=== PATIENT | female | born 1985 | race African-American/Black ===

== ENCOUNTER 2018-01-13 12:07 | Emergency (ER) | payer OTHER ==
[2018-01-13 12:14] VITALS: TEMP 97.7; BMI 21.9
--- NOTE | 2018-01-13 13:03 | PDOC ---
Attending Attestation - HPI HPI: 01/13/18 14:57 "The patient is a 32-year-old female, , 11 weeks , with past medical history significant for Sickle Cell (dx at a young age) presents to the emergency department with abdominal pain for the 3 days. The patient presents with an acute onset of intermittent sharp pain to the RLQ and adnexal region thats felt near the end of urination. The patient reports she has a history of anemia, was referred to follow up, denies following up. The patient states she was diagnosed with Sickle Cell at a young age, without follow up. Denies nausea , vomiting, diarrhea, constipation, fever, chills, vaginal bleeding/discharge, dysuria, hematuria, frequency or urgency to urinate. Allergies: NKA Social history: No past or present use of tobacco, alcohol, prescription drug abuse or recreational drug use. Surgical history: None reported PCP: Dr. Gill Singh PROCESS CONTROL TECHNICIAN: 2 Park schmid. " - Medical Decision Making 01/13/18 14:57 Documentation prepared by Nayely Dennis, acting as medical terminologist for Garo Verdin MD. <Nayely Dennis - Last Filed: 01/13/18 14:57> - Resident Resident Name: To Bethea - ED Attending Attestation I have performed the following: I have examined & evaluated the patient, The case was reviewed & discussed with the resident, I agree w/resident's findings & plan, Exceptions are as noted - Physicial Exam PE: 01/13/18 14:26 GENERAL: The patient is awake, alert, and fully oriented, Nontoxic - in no acute distress. HEAD: Normocephalic, atraumatic. ABDOMEN: Soft, nontender, No guarding, no rebound. No CVA tenderness EXTREMITIES: Normal range of motion, no edema. NEUROLOGICAL: No facial assymetry, Normal speech, PSYCH: Normal mood, normal affect. SKIN: Warm, Dry, normal turgor, - Medical Decision Making 01/13/18 14:27 ddx for pain at end of urination w/o systemic clmiplains consider UTI if preg diana obtain us to confirm IUP pt currently asymptmoatic labs unremarkble UA negative noted for mild anemia - known Sickle cell - has appt with M 01/13/18 15:41 The patient's ultrasound reveals a in IUP with heart rate 152. As she is asymptomatic I will discharge patient with HEALTHCARE ECONOMICS MANAGER follow-up. return precautions were discussed 01/13/18 16:14 A portion of this note was documented by scribe services under my direction. I have reviewed the details of the note, within reason, and agree with the documentation with the following case summary and management plan written by me <Garo Verdin - Last Filed: 01/13/18 16:14>
[2018-01-13 13:26] LABS: BASO % 0.5 % (0-2.0); EOS % 0.7 % (0-4.5); HEMOGLOBIN 9.6 GM/dL (10.7-15.3); LYMPH % 21.3 % (8-40); MCH 30.5 pg (25.7-33.7); MCHC 35.5 g/dl (32.0-36.0); MEAN CELL VOLUME 85.9 fl (80-96); MEAN PLT VOLUME 11.3 fl (7.5-11.1); MONO % 8.1 % (3.8-10.2); NEUT % 69.4 % (42.8-82.8); PLATELET COUNT 141 K/MM3 (134-434); RBC 3.14 M/mm3 (3.60-5.2); RDW 14.8 % (11.6-15.6); WHITE BLOOD COUNT 5.8 K/mm3 (4.0-10.0)
--- NOTE | 2018-01-13 13:29 | PDOC ---
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 Patient states the pain is sharp, radiates across the abdomen and is noticed towards the end of voiding urine. Pts last appointment with OB 3 weeks ago (Dr. Ba at [facility]) and due to anemia has been referred to Dr. Chavez (Neonatology). Pt denies F/C/N/V , increased frequency of urination, changes in bowel habits, Cp or SOB. Past History - Past Medical History Allergies/Adverse Reactions: Allergies Allergy/AdvReac Type Severity Reaction Status Date / Time No Known Allergies Allergy Verified 01/13/18 12:11 Home Medications: Ambulatory Orders Folic Acid - 1 mg PO DAILY 01/13/18 Vit,Lukasz 74/Iron/Folic [ Low Iron Tablet] 1 each PO DAILY - Suicide/Smoking/Psychosocial Hx Smoking History: Never smoked Review of Systems - Review of Systems Constitutional: No: Chills, Fever Respiratory: No: Shortness of Breath Cardiac (ROS): No: Chest Pain ABD/GI: No: Nausea, Vomiting : Yes: Dysuria (towards the end of urination) Musculoskeletal: No: Back Pain Neurological: No: Headache *Physical Exam - Vital Signs Last Vital Signs Temp Pulse Resp BP Pulse Ox 97.7 F 81 18 136/70 100 01/13/18 12:11 01/13/18 12:11 01/13/18 12:11 01/13/18 12:11 01/13/18 12:11 - Physical Exam General Appearance: Yes: Nourished, Appropriately Dressed. No: Apparent Distress HEENT: positive: EOMI Respiratory/Chest: positive: Lungs Clear, Normal Breath Sounds. negative: Crackles, Wheezing Cardiovascular: positive: Regular Rhythm, Regular Rate, S1, S2. negative: Edema , JVD, Murmur Vascular Pulses: Dorsalis-Pedis (R): 4+, Doralis-Pedis (L): 4+ Gastrointestinal/Abdominal: positive: Normal Bowel Sounds, Tenderness (mild tenderness RLQ). negative: Pulsatile Mass, Distended, Guarding, Rebound Extremity: positive: Normal Capillary Refill Integumentary: positive: Normal Color, Dry, Warm Neurologic: positive: Fully Oriented, Alert, Normal Mood/Affect, Normal Response ED Treatment Course - LABORATORY CBC & Chemistry Diagram: 01/13/18 13:00 01/13/18 13:00 Medical Decision Making - Medical Decision Making 01/13/18 15:31 32 yo female no significant pmh 11 weeks with ED confirmed IUP [place] [id number] presents for RLQ pain after voiding urine. Pt appears well AOX3 and states she currently does not have pain. DDX: UTI, Urinary Stone, Ectopic/ruptured ectopic, ovarian cyst/ruptured cyst, appendicitis (unlikely, no WBC, Fever and no rebound), gall stones (unlikely due to location) 01/13/18 16:15 Urine negative for blood or infection Ultrasound shows IUP and a 2 by 1.5 cm right ovarian cyst. Unlikely to be causing pain but follow up with OB appointment set in one week patient re-assessed multiple times and states pain has improved without medical intervention, no longer tender on exam 01/13/18 16:19 *DC/Admit/Observation/Transfer Diagnosis at time of Disposition: Abdominal pain Qualifiers: Abdominal location: right lower quadrant Qualified Code(s): R10.31 - Right lower quadrant pain - Discharge Dispostion Disposition: HOME Condition at time of disposition: Stable Decision to Admit order: No - Referrals Referrals: Pema Singh MD [Primary Care Provider] - Yolanda Ba [Other] - Patient Instructions Additional Instructions: Please follow up and keep your appointment with Dr. Ba next Tuesday but be sure to give them a call to discuss your visit today. Only take Tylenol over the counter every 4-6 hours for pain relief. Please return to the Emergency Room for new or worsening symptoms including but not limited to: high fevers, nausea, vomiting, severe abdominal pain. Thank you - Post Discharge Activity
[2018-01-13 13:31] LABS: URINE APPEARANCE CLEAR; URINE BILIRUBIN NEGATIVE (<2.0 mg/dL); URINE COLOR LTYELLOW; URINE GLUCOSE (UA) NEGATIVE (NEGATIVE); URINE KETONE NEGATIVE (NEGATIVE); URINE LEUK ESTERASE NEGATIVE (NEGATIVE); URINE NITRITE NEGATIVE (NEGATIVE); URINE PROTEIN NEGATIVE (NEGATIVE); URINE UROBILINOGEN NEGATIVE mg/dL (0.2-1.0)
[2018-01-13 14:12] LABS: ALBUMIN 3.9 g/dl (3.4-5.0); ALK PHOS 64 U/L (45-117); ANION GAP 9 MMOL/L (8-16); BILIRUBIN,TOTAL 0.6 mg/dL (0.2-1); BLOOD UREA NITROGEN 6 mg/dL (7-18); CALCIUM 8.5 mg/dL (8.5-10.1); CHLORIDE 104 mmol/L (98-107); CO2 23 mmol/L (21-32); CREATININE 0.4 mg/dL (0.55-1.3); GLUCOSE,RANDOM 90 mg/dL (74-106); LIPASE 204 U/L (73-393); POTASSIUM 3.6 mmol/L (3.5-5.1); SGOT/AST 20 U/L (15-37); SGPT/ALT 23 U/L (13-61); SODIUM 136 mmol/L (136-145); TOT PROT 7.8 g/dl (6.4-8.2)
[2018-01-13 16:37] VITALS: BP 118/68; PULSE 74
== END 2018-01-13 16:36 | disposition home or self-care (01) ==
LOC: JER 12:07
DX: O26.891 Other specified pregnancy related conditions, first trimester (principal); Z3A.11 11 weeks gestation of pregnancy; R10.31 Right lower quadrant pain
CPT/HCPCS: 36415; 76801-TC; 80053; 81003; 83690; 84702; 85025; 87086; 99283-25

== ENCOUNTER 2018-07-21 18:06 | Inpatient (IN) | payer OTHER ==
[2018-07-21] MEDS ORDERED: CITRIC ACID/SODIUM CITRATE 30 ML UNIT-DOSE CUP PO ONE (22:22)
[2018-07-21] MEDS ORDERED: ELECTROLYTE-148 SOLN 1,000 ML IV SCH (22:30)
--- NOTE | 2018-07-21 22:31 | HP ---
Past Medical History - Primary Care Physician PCP:: Neo Belle - Admission Chief Complaint: 38 weeks, oligohydramnions , non reassuring FHR History of Present Illness: 33 yo f 38 weeks with hx of oligo , referred by M[facility] at [facility] for delivery, cx clp vx -3 mi, multiple deceleration noted on heart tracing, advised c/s ,risks discussed History Source: Patient Limitations to Obtaining History: No Limitations - Past Medical History ...: 1 ...Para: 0 ...Term: 0 ...: 0 ...Spon : 0 ...Induced : 0 ...LMP: 10/26/17 ... Weeks Gestation by Dates: 38.2 ...EDC by Dates: 11/02/18 ...EDC by Sono: 11/02/18 Heme/Onc: Yes: Anemia - Past Surgical History Hx Myomectomy: No Hx Transabdominal Cerclage: No - Smoking History Smoking history: Never smoked - Alcohol/Substance Use Hx Alcohol Use: No History of Substance Use: reports: None - Social History History of Recent Travel: No Home Medications - Allergies Allergies/Adverse Reactions: Allergies Allergy/AdvReac Type Severity Reaction Status Date / Time No Known Allergies Allergy Verified 07/21/18 21:50 - Home Medications Home Medications: Ambulatory Orders Folic Acid - 1 mg PO DAILY 01/13/18 Vit,Lukasz 74/Iron/Folic [ Low Iron Tablet] 1 each PO DAILY Review of Systems - Review of Systems Constitutional: reports: No Symptoms Eyes: reports: No Symptoms HENT: reports: No Symptoms Neck: reports: No Symptoms Cardiovascular: reports: No Symptoms Respiratory: reports: No Symptoms Gastrointestinal: reports: No Symptoms Genitourinary: reports: No Symptoms Breasts: reports: No Symptoms Reported Musculoskeletal: reports: No Symptoms Integumentary: reports: No Symptoms Neurological: reports: No Symptoms Endocrine: reports: No Symptoms Hematology/Lymphatic: reports: No Symptoms Psychiatric: reports: No Symptoms Physical Exam - Maternity Vital Signs: Vital Signs Temperature 98.7 F 07/21/18 18:06 Pulse Rate 68 07/21/18 18:06 Respiratory Rate 28 H 07/21/18 18:06 Blood Pressure 122/69 07/21/18 18:06 O2 Sat by Pulse Oximetry (%) Constitutional: Yes: Well Nourished, No Distress, Calm Eyes: Yes: WNL, Conjunctiva Clear, EOM Intact HENT: Yes: WNL, Atraumatic, Normocephalic Neck: Yes: WNL, Supple, Trachea Midline Cardiovascular: Yes: WNL, Regular Rate and Rhythm Breast(s): Yes: WNL - Abdominal Exam/OB Number of Fetuses: Single Presentation: Vertex Contractions: Yes Regularity: Irregular Intensity: Unaware Monitor Mode: External Heart Rate Location: [facility] Category: II Accelerations: Non-Uniform Decelerations: Late - Vaginal Exam/OB Vaginal Bleediing: No Speculum Exam: No Dilatation (cm): 0 Effacement (%): 0 Amniotic Membrane Status: Intact Presentation: Vertex/Position Station: -3 - Physical Exam Edema: Yes Edema: LLE: Trace, RLE: Trace Integumentary: Yes: WNL Deep Tendon Reflex Grade: Normal +2 Psychiatric: Yes: WNL Hemorrhage Risk Assessment - Risk Factors Medium Risk Factors: Yes: None High Risk Factors: Yes: None Risk Score: 1 Risk Level: Medium Risk Problem List - Problems (1) with 38 completed weeks gestation Code(s): Z3A.38 - 38 WEEKS GESTATION OF (2) Oligohydramnios Code(s): O41.00X0 - OLIGOHYDRAMNIOS, UNSP TRIMESTER, NOT APPLICABLE OR UNSP Qualifiers: Fetus number: single or unspecified fetus Trimester: third trimester Qualified Code(s): O41.03X0 - Oligohydramnios, third trimester, not applicable or unspecified (3) Non-reassuring electronic monitoring tracing Code(s): O76 - ABNLT IN HEART RATE AND RHYTHM COMP LABOR AND DELIVERY Assessment/Plan c/section, risks discussed
[2018-07-21 22:37] LABS: BASO % 0.6 % (0-2.0); EOS % 0.9 % (0-4.5); HEMOGLOBIN 9.3 GM/dL (10.7-15.3); LYMPH % 18.5 % (8-40); MCH 32.2 pg (25.7-33.7); MCHC 34.4 g/dl (32.0-36.0); MEAN CELL VOLUME 93.7 fl (80-96); MEAN PLT VOLUME 11.3 fl (7.5-11.1); MONO % 8.8 % (3.8-10.2); NEUT % 71.2 % (42.8-82.8); PLATELET COUNT 118 K/MM3 (134-434); RBC 2.89 M/mm3 (3.60-5.2); RDW 14.3 % (11.6-15.6); WHITE BLOOD COUNT 7.1 K/mm3 (4.0-10.0)
[2018-07-21 22:59] LABS: ANION GAP 6 MMOL/L (8-16); BLOOD UREA NITROGEN 8 mg/dL (7-18); CALCIUM 8.5 mg/dL (8.5-10.1); CHLORIDE 109 mmol/L (98-107); CO2 23 mmol/L (21-32); CREATININE 0.5 mg/dL (0.55-1.3); GLUCOSE,RANDOM 82 mg/dL (74-106); POTASSIUM 3.9 mmol/L (3.5-5.1); SODIUM 138 mmol/L (136-145)
[2018-07-21] MEDS ORDERED: morphine SULFATE/Preservative Free 0.5 MG/ML (1cc Syringe) ONE (23:05)
[2018-07-21 23:07] LABS: INR 0.96 (0.83-1.09); PROTHROMBIN TIME (PATIENT) 11.3 SEC (9.7-13.0)
[2018-07-21 23:09] LABS: ACTIVATED PTT 29.4 SECONDS (25.2-36.5)
[2018-07-21] MEDS ORDERED: ONDANSETRON 4 MG/2 ML VIAL IVPUSH PRN (23:19)
[2018-07-21] MEDS ORDERED: OXYTOCIN 20 UNITS in 0.9% NS 40 UNIT/2,000 ML INFUS.BAG IV ONE (23:22)
[2018-07-22] MEDS ORDERED: oxyCODONE HCL 5 MG TABLET PO PRN ×2 (00:26)
[2018-07-22] MEDS ORDERED: WITCH HAZEL 50% (TUCKS) 40 PAD/JAR PAD TP PRN (00:26)
[2018-07-22] MEDS ORDERED: BENZOCAINE 28 GM HEMORRHOIDAL OINTMENT PR PRN (00:26)
[2018-07-22] MEDS ORDERED: diphenhydrAMINE HCL 25 MG CAPSULE (FP) PO PRN (00:26)
[2018-07-22] MEDS ORDERED: IBUPROFEN 600 MG TABLET (FP) PO PRN (00:26)
[2018-07-22] MEDS ORDERED: BENZOCAINE 20% 57 GM BOTTLE TP PRN (00:26)
[2018-07-22] MEDS ORDERED: IBUPROFEN 800 MG/8 ML IJ IVPB PRN (00:26)
[2018-07-22] MEDS ORDERED: METHYLERGONOVINE MALEATE 0.2 MG/1 ML AMP IM PRN (00:26)
[2018-07-22] MEDS ORDERED: DEXTROSE 5%-LACTATED RINGERS 1,000 ML IV SCH (00:30)
[2018-07-22] MEDS ORDERED: OXYTOCIN 20 UNITS in 0.9% NS 20 UNIT/1,000 ML INFUS.BAG IV SCH (00:30)
[2018-07-22] MEDS ORDERED: ACETAMINOPHEN 325 MG TABLET (FP) PO PRN (00:31)
[2018-07-22 01:10] LABS: VENOUS PC02 63.8 mmHg (41-51); VENOUS PH 7.21 (7.31-7.41)
[2018-07-22 01:31] LABS: VENOUS PO2 7.3 mmHg (30-40)
[2018-07-22 01:40] VITALS: BMI 26.8
[2018-07-22] MEDS ORDERED: CEFAZOLIN 1 GM in DEXTROSE 5%-WATER - 50 ML IVPB SCH (02:00)
[2018-07-22] MEDS: CEFAZOLIN 1 GM/D5W 1 GM/50 ML BAG IVPB SCH ×2 (03:11→10:10)
--- NOTE | 2018-07-22 07:43 | PN ---
Progress Note (short form) - Note Progress Note: pod 1. s/p c/s, non reassuring FHr, oligo, doing well CBC, BMP 07/21/18 22:00 07/21/18 22:00 Last Vital Signs Temp Pulse Resp BP Pulse Ox 98.1 F 77 20 126/68 100 07/22/18 06:00 07/22/18 06:00 07/22/18 07:00 07/22/18 06:00 07/22/18 02:00 abdomen soft, no distension, no cva , incisio dry, clean no calf tenderness plan ambulate , cbc pain management Problem List - Problems (1) with 38 completed weeks gestation Code(s): Z3A.38 - 38 WEEKS GESTATION OF (2) Oligohydramnios Code(s): O41.00X0 - OLIGOHYDRAMNIOS, UNSP TRIMESTER, NOT APPLICABLE OR UNSP Qualifiers: Fetus number: single or unspecified fetus Trimester: third trimester Qualified Code(s): O41.03X0 - Oligohydramnios, third trimester, not applicable or unspecified (3) Non-reassuring electronic monitoring tracing Code(s): O76 - ABNLT IN HEART RATE AND RHYTHM COMP LABOR AND DELIVERY
--- NOTE | 2018-07-22 09:55 | PN ---
Progress Note (short form) - Note Progress Note: Anesthesia/pain Pt seen and examined S:Alert and awake comfortable O: CBC, BMP 07/21/18 22:00 07/21/18 22:00 Vital Signs Temperature 98.1 F 07/22/18 06:00 Pulse Rate 77 07/22/18 06:00 Respiratory Rate 20 07/22/18 07:00 Blood Pressure 126/68 07/22/18 06:00 O2 Sat by Pulse Oximetry (%) 100 07/22/18 02:00 A/P: Current Active Problems Non-reassuring electronic monitoring tracing (Acute) Oligohydramnios (Acute) with 38 completed weeks gestation (Acute) s/p c section Doing well post op Continue current care Misael Taylor MD
--- NOTE | 2018-07-22 10:08 | OP ---
DATE OF OPERATION: 07/21/2018 PREOPERATIVE DIAGNOSIS: , 38 weeks, oligohydramnios, nonreassuring heart rate. POSTOPERATIVE DIAGNOSIS: , 38 weeks, oligohydramnios, nonreassuring heart rate. PROCEDURE PERFORMED: Primary low-segment transverse section. SURGEON: Neo Belle MD CLOTHING SALES ASSISTANT: JIMY Martel ANESTHESIA: Spinal. ANESTHESIOLOGIST: Misael Taylor MD ESTIMATED BLOOD LOSS: 500 mL. FINDINGS: A live baby in occiput posterior position, cord around the neck x1. DESCRIPTION OF PROCEDURE: The patient was taken to the operating room and had adequate spinal anesthesia. Abdomen and perineum were prepped and draped. A Pfannenstiel abdominal skin incision was made. The abdominal wall was cut layer by layer. The anterior peritoneum was exposed and incised. Upon entering the abdominal cavity, the lower uterine segment was identified and uterovesical fold of peritoneum established. The bladder was pushed down. Then, with the lower blade of the Smooth retractor in the pelvis, a low transverse uterine incision was made. The incision was extended laterally. The amniotic sac was entered. Clear fluid. Head delivered from occiput posterior position. Nasopharynx was suctioned. Cord around the neck x1 reduced and then live baby was delivered without any difficulty. The placenta was delivered manually. The uterine cavity was cleaned of all remaining tissue. The uterine incision was closed in 2 layers, the 1st layer with 0 Biosyn continuous suture and the 2nd layer with 0 Biosyn imbricating the 1st layer. The bladder flap was closed with 0 Biosyn continuous suture. Both tubes and ovaries were checked and were normal. No active bleeding was seen. All the lap, sponge and instrument counts were correct. Then the peritoneum was closed with 0 Biosyn continuous suture. The muscles were brought together with interrupted suture of 0 Biosyn. The fascia was closed with 0 Biosyn continuous suture, the subcutaneous fat with interrupted suture of 0 Biosyn, and the skin was closed with yoana. The patient tolerated the procedure well, and left the OR in good condition. Casey [id number]
[2018-07-22] MEDS: ENOXAPARIN NA (PORCINE) 40 MG/0.4 ML DISP.SYRIN SQ SCH (10:10)
[2018-07-23] MEDS ORDERED: BISACODYL 10 MG SUPP.RECT PR PRN (00:26)
[2018-07-23] MEDS: SIMETHICONE 80 MG TAB.CHEW (FP) PO PRN ×2 (05:46→15:58)
[2018-07-23] MEDS: IBUPROFEN 600 MG TABLET (FP) PO PRN ×2 (05:46→15:58)
[2018-07-23] MEDS: ACETAMINOPHEN 325 MG TABLET (FP) PO PRN ×2 (05:49→15:57)
[2018-07-23 08:24] LABS: BASO % 0.6 % (0-2.0); EOS % 0.3 % (0-4.5); HEMATOCRIT 24.1 % (32.4-45.2); HEMOGLOBIN 8.5 GM/dL (10.7-15.3); LYMPH % 10.9 % (8-40); MCH 32.6 pg (25.7-33.7); MCHC 35.3 g/dl (32.0-36.0); MEAN CELL VOLUME 92.2 fl (80-96); MONO % 7.1 % (3.8-10.2); NEUT % 81.1 % (42.8-82.8); PLATELET COUNT 105 K/MM3 (134-434); RBC 2.61 M/mm3 (3.60-5.2); RDW 14.3 % (11.6-15.6); WHITE BLOOD COUNT 7.4 K/mm3 (4.0-10.0)
[2018-07-23] MEDS: ENOXAPARIN NA (PORCINE) 40 MG/0.4 ML DISP.SYRIN SQ SCH (09:57)
--- NOTE | 2018-07-23 16:47 | PN ---
Progress Note (short form) - Note Progress Note: pod 2 s/p c/s ,no c/o , ambulating, passing gas, no excess vaginal bleeding,no dizziness Last Vital Signs Temp Pulse Resp BP Pulse Ox 98.6 F 71 20 104/50 L 100 07/23/18 09:03 07/23/18 09:03 07/23/18 09:03 07/23/18 09:03 07/22/18 02:00 CBC, BMP 07/23/18 07:20 07/21/18 22:00 abdomen soft, no distension, no cva incision dry, clean no calf tenderness plan ambulate, cbc in am pain management Problem List - Problems (1) with 38 completed weeks gestation Code(s): Z3A.38 - 38 WEEKS GESTATION OF (2) Oligohydramnios Code(s): O41.00X0 - OLIGOHYDRAMNIOS, UNSP TRIMESTER, NOT APPLICABLE OR UNSP Qualifiers: Fetus number: single or unspecified fetus Trimester: third trimester Qualified Code(s): O41.03X0 - Oligohydramnios, third trimester, not applicable or unspecified (3) Non-reassuring electronic monitoring tracing Code(s): O76 - ABNLT IN HEART RATE AND RHYTHM COMP LABOR AND DELIVERY
--- NOTE | 2018-07-24 07:46 | PN ---
Progress Note (short form) - Note Progress Note: pod 3 , s/p c/s, ambulating, had BM, no excess vaginal bleeding Last Vital Signs Temp Pulse Resp BP Pulse Ox 98.6 F 77 18 135/72 100 07/23/18 22:00 07/23/18 22:00 07/23/18 22:00 07/23/18 22:00 07/22/18 02:00 CBC, BMP 07/23/18 07:20 07/21/18 22:00 abdomen soft, no distension, no cva incision dry, clean no calf tenderness no excess vaginal bleeding plan ambulate, cbc Problem List - Problems (1) with 38 completed weeks gestation Code(s): Z3A.38 - 38 WEEKS GESTATION OF (2) Oligohydramnios Code(s): O41.00X0 - OLIGOHYDRAMNIOS, UNSP TRIMESTER, NOT APPLICABLE OR UNSP Qualifiers: Fetus number: single or unspecified fetus Trimester: third trimester Qualified Code(s): O41.03X0 - Oligohydramnios, third trimester, not applicable or unspecified (3) Non-reassuring electronic monitoring tracing Code(s): O76 - ABNLT IN HEART RATE AND RHYTHM COMP LABOR AND DELIVERY
[2018-07-24] MEDS: SIMETHICONE 80 MG TAB.CHEW (FP) PO PRN ×2 (08:43→19:28)
[2018-07-24] MEDS: IBUPROFEN 600 MG TABLET (FP) PO PRN ×2 (08:43→19:28)
[2018-07-24] MEDS: ACETAMINOPHEN 325 MG TABLET (FP) PO PRN (08:44)
[2018-07-24] MEDS: ENOXAPARIN NA (PORCINE) 40 MG/0.4 ML DISP.SYRIN SQ SCH (10:43)
[2018-07-24] MEDS ORDERED: SENNOSIDES/DOCUSATE COMBO (SENNA PLUS) TABLET (UD) PO PRN (22:00)
[2018-07-25 08:54] LABS: BASO % 0.7 % (0-2.0); EOS % 1.6 % (0-4.5); HEMATOCRIT 24.3 % (32.4-45.2); HEMOGLOBIN 8.4 GM/dL (10.7-15.3); LYMPH % 15.3 % (8-40); MCH 31.8 pg (25.7-33.7); MCHC 34.6 g/dl (32.0-36.0); MEAN CELL VOLUME 92.1 fl (80-96); MEAN PLT VOLUME 9.5 fl (7.5-11.1); MONO % 5.6 % (3.8-10.2); NEUT % 76.8 % (42.8-82.8); PLATELET COUNT 135 K/MM3 (134-434); RBC 2.64 M/mm3 (3.60-5.2); WHITE BLOOD COUNT 5.7 K/mm3 (4.0-10.0)
[2018-07-25] MEDS: ENOXAPARIN NA (PORCINE) 40 MG/0.4 ML DISP.SYRIN SQ SCH (09:26)
--- NOTE | 2018-07-25 10:29 | DS ---
Physical Exam-FREIGHT RATE ANALYST Vital Signs: Vital Signs Temperature 98.7 F 07/24/18 22:00 Pulse Rate 72 07/24/18 22:00 Respiratory Rate 18 07/24/18 22:00 Blood Pressure 112/71 07/24/18 22:00 O2 Sat by Pulse Oximetry (%) 100 07/22/18 02:00 Constitutional: Yes: Well Nourished Eyes: Yes: Conjunctiva Clear Neck: Yes: Supple Cardiovascular: Yes: Regular Rate and Rhythm Respiratory: Yes: Regular Gastrointestinal: Yes: Normal Bowel Sounds ...Rectal Exam: Yes: WNL Pelvis: Yes: WNL External Genitalia: Yes: Normal Vaginal Exam: Yes: Normal Cervix: Yes: Normal Uterus: Yes: Normal ....Post : Yes: Uterus firm Musculoskeletal: Yes: WNL Wound/Incision: Yes: Well Approximated Neurological: Yes: Alert, Oriented ...Motor Strength: WNL Psychiatric: Yes: Alert, Oriented Labs: CBC, BMP 07/25/18 08:30 07/21/18 22:00 Delivery - Delivery Type of Anesthesia: Spinal EBL (cc): 500 Delivery, Single - Stages of Labor Date of Delivery: 07/21/18 Time of Delivery: 23:27 Time Placenta Delivered: 23:28 - Condition of Infant Underground Mining Section Foreman/Information Technology Analyst Present: Yes Name: Korin Hutchison Gender: Male Weight: 6 lb 5 oz Position: OP Total Hours ROM (Hrs/Mins): 1 minute - 1 Minute Total Score: 8 5 Minutes Total Score: 9 - Radisson Feeding Plan Initial Plan: Elected not to breastfeed exclusively throughout hospitalization Discharge Summary Reason For Visit: LABOR ADMIT Current Active Problems Non-reassuring electronic monitoring tracing (Acute) Oligohydramnios (Acute) with 38 completed weeks gestation (Acute) Procedures: Principal: Primary Hospital Course: Routine post op care Condition: Good - Instructions Diet, Activity, Other Instructions: Regular diet No driving, no lifting x 4 weeks F/U in clinic in one week. Disposition: HOME - Home Medications Comprehensive Discharge Medication List: Ambulatory Orders Folic Acid - 1 mg PO DAILY 01/13/18 Vit,Lukasz 74/Iron/Folic [ Low Iron Tablet] 1 each PO DAILY
[2018-07-25 10:56] VITALS: BP 122/77; PULSE 83; TEMP 98.9
[2018-07-25] MEDS: IBUPROFEN 600 MG TABLET (FP) PO PRN (11:38)
[2018-07-25] MEDS: ACETAMINOPHEN 325 MG TABLET (FP) PO PRN (11:39)
[2018-07-25] MEDS: SIMETHICONE 80 MG TAB.CHEW (FP) PO PRN (11:40)
--- NOTE | 2018-07-26 17:21 | PATH ---
Surgical Pathology Report Patient Name: TYLER ROJAS Med. Rec. #: [id number] /Age/Gender: 1985 (Age: 33) / F Account: [id number] Location: [facility] OBS/SUPERVISOR GRADING Taken: 07/21/2018 Received: 07/24/2018 Reported: 07/26/2018 Physicians: Neo Belle M.D. Specimen(s) Received PLACENTA Clinical History , history of anemia, oligohydramnios, nonreassuring heart rate Final Diagnosis PLACENTA: THIRD TRIMESTER PLACENTA. TRIVASCULAR CORD. MEMBRANES WITH NO DIAGNOSTIC ABNORMALITIES. Electronically Signed Bob Castillo M.D. Gross Description The specimen is received fresh labeled placenta and is a 354 gram, 18.0 x 15.5 x 2.0 cm. placenta with attached membranes and umbilical cord. The attached membranes are monteiro, translucent with focal opacities and insert marginally. The umbilical cord measures 15 cm. in length and averages 1.3 cm. in diameter. The cord inserts eccentrically, 5 cm. to the nearest margin. No true knots or strictures are identified. Cut surface of the umbilical cord reveals 3 vessels. The surface is carl-blue with minimal fibrin deposition and appropriate caliber vessels. The maternal surface is red-brown with focal defects. Sectioning reveals red-brown, spongy parenchyma. No lesions are identified. Pathology Technician sections are submitted in three cassettes as follows: 1- membrane rolls and umbilical cord; 2-3- full thickness sections of placenta. /07/25/2018 saudi07/25/2018
== END 2018-07-25 14:15 | disposition home or self-care (01) | DRG 540 ==
LOC: JDEL 18:06 → JLDR 21:30 → J3W 07-22 02:40
PROVIDERS: ADMIT Obstetrics & Gynecology; ATTEND Obstetrics & Gynecology
PROC: 10D00Z1 Extraction of Products of Conception, Low, Open Approach (ICD-10-PCS; principal; 2018-07-21)
DX: O76 Abnormality in fetal heart rate and rhythm complicating labor and delivery (principal); O41.00X0 Oligohydramnios, unspecified trimester, not applicable or unspecified; Z3A.38 38 weeks gestation of pregnancy; Z37.0 Single live birth
CPT/HCPCS: 36415; 36600; 59025; 74018-TC-FY; 80048; 82803; 85025; 85610; 85730; 86593; 86850; 86900; 86901; 88307-TC

== ENCOUNTER 2018-07-29 02:14 | Emergency (ER) | payer OTHER ==
--- NOTE | 2018-07-29 02:20 | PDOC ---
History of Present Illness - General Stated Complaint: COUGH,BACK PAIN Time Seen by Provider: 07/29/18 02:20 History Source: Patient Exam Limitations: No Limitations - History of Present Illness Initial Comments: 07/29/18 02:27 33 year old female with no PMH presented to ED for cough and right sided flank/ rib pain x3 days. Pt admitted to yellow sputum production, chills, sweats. Pt denied chest pain, shortness of breath, nausea, vomiting, diarrhea. Pt had a c- section delivery x1 week ago. Allergies: NKDA Past History - Past Medical History Allergies/Adverse Reactions: Allergies Allergy/AdvReac Type Severity Reaction Status Date / Time No Known Allergies Allergy Verified 07/21/18 21:50 Home Medications: Ambulatory Orders Folic Acid - 1 mg PO DAILY 01/13/18 Vit,Lukasz 74/Iron/Folic [ Low Iron Tablet] 1 each PO DAILY Azithromycin [Zithromax 250mg Tablets -] 250 mg PO UTDICT #6 tab 07/29/18 Asthma: No Cancer: No Cardiac Disorders: No Diabetes: No HTN: No Seizures: No Thyroid Disease: No - Suicide/Smoking/Psychosocial Hx Smoking History: Never smoked Have you smoked in the past 12 months: No Hx Alcohol Use: No Drug/Substance Use Hx: No Hx Substance Use Treatment: No Review of Systems - Review of Systems Able to Perform ROS?: Yes Comments:: 07/29/18 02:31 General: denied fever, chills, generalized weakness. HEENT: denied sore throat, rhinorrhea, ear pain. Heart: denied chest pain, palpitations, syncope, diaphoresis. Respiratory: admitted to cough, sputum production. denied shortness of breath, hemoptysis. Abdomen: denied abdominal pain, nausea, vomiting, diarrhea, constipation, blood in stool. : admitted to flank pain. denied dysuria, increased urinary frequency, hematuria, urinary incontinence. Back: admitted to back pain. Musculoskeletal: denied joint pain, muscle pain, joint swelling. Neurological: denied headache, dizziness, numbness, tingling, weakness. Skin: denied rash, laceration, abrasion. *Physical Exam - Physical Exam Comments: 07/29/18 02:33 Constitutional: Well-nourished, Well-developed, appearing stated age. HEENT: head is normocephalic, atraumatic. EOMI. PERRLA. nasal congestion. Neck: supple. Full ROM. Heart: regular rhythm. no murmurs, rubs or gallops. Lungs: crackles to right base. no wheezing. Abdomen: soft, nontender. normal bowel sounds. no rebound, guarding, masses. Back: negative CVA tenderness bilaterally. Extremities: peripheral pulses intact. no lower extremity edema. Neurological: CN 2-12 grossly intact. moves all four extremities. Psych: awake, alert, oriented x3. follows commands. answers questions appropriately. ED Treatment Course - LABORATORY CBC & Chemistry Diagram: 07/29/18 03:19 07/29/18 03:19 Medical Decision Making - Medical Decision Making 07/29/18 02:35 33 year old female with no PMH presented to ED for cough/right sided rib pain x3 days. Initial Vital Signs Temp Pulse Resp BP Pulse Ox 99.1 F 118 H 22 H 137/91 100 07/29/18 02:39 07/29/18 02:39 07/29/18 02:39 07/29/18 02:39 07/29/18 02:39 Borderline fever. Tachycardic. Tachypneic. Hypertensive. No hypoxia on room air. Labs ordered: UA, urine , CBC, CMP Imaging ordered: CXR, CTA chest Medications ordered: Tylenol 975 mg PO once, normal saline 1000 cc bolus once Tachypnea, cough and chest wall pain s/p concerning for PE. EKG performed at 0305: rate 107, regular rhythm, normal axis, normal intervals, flat T in III, otherwise no ST changes. 07/29/18 03:20 Urine Test Results Urine Color Yellow 07/29/18 02:40 Urine Appearance Clear 07/29/18 02:40 Urine pH 6.5 (5.0-8.0) 07/29/18 02:40 Ur Specific [place] 1.016 (1.010-1.035) 07/29/18 02:40 Urine Protein Negative (NEGATIVE) 07/29/18 02:40 Urine Glucose (UA) Negative (NEGATIVE) 07/29/18 02:40 Urine Ketones Negative (NEGATIVE) 07/29/18 02:40 Urine Blood 1+ (NEGATIVE) H 07/29/18 02:40 Urine Nitrite Negative (NEGATIVE) 07/29/18 02:40 Urine Bilirubin Negative (NEGATIVE) 07/29/18 02:40 Ur Leukocyte Esterase Negative (NEGATIVE) 07/29/18 02:40 Urine test positive -Pt just had a baby x1 week ago No UTI Pyelo unlikely. 07/29/18 04:07 CBC WBC 14.5 K/mm3 (4.0-10.0) H 07/29/18 03:19 RBC 3.13 M/mm3 (3.60-5.2) L 07/29/18 03:19 Hgb 9.4 GM/dL (10.7-15.3) L 07/29/18 03:19 Hct 28.0 % (32.4-45.2) L D 07/29/18 03:19 MCV 89.7 fl (80-96) 07/29/18 03:19 MCH 30.1 pg (25.7-33.7) 07/29/18 03:19 MCHC 33.5 g/dl (32.0-36.0) 07/29/18 03:19 RDW 15.0 % (11.6-15.6) 07/29/18 03:19 Plt Count 213 K/MM3 (134-434) D 07/29/18 03:19 MPV 9.5 fl (7.5-11.1) 07/29/18 03:19 Absolute Neuts (auto) 12.2 K/mm3 (1.5-8.0) H 07/29/18 03:19 Neutrophils % 84.3 % (42.8-82.8) H 07/29/18 03:19 Lymphocytes % 7.9 % (8-40) L D 07/29/18 03:19 Monocytes % 7.2 % (3.8-10.2) 07/29/18 03:19 Eosinophils % 0.3 % (0-4.5) D 07/29/18 03:19 Basophils % 0.3 % (0-2.0) 07/29/18 03:19 Nucleated RBC % 0 % (0-0) 07/29/18 03:19 Leukocytosis with left shift. Normocytic anemia, at baseline. 07/29/18 04:25 CMP Sodium 135 mmol/L (136-145) L 07/29/18 03:19 Potassium 3.8 mmol/L (3.5-5.1) 07/29/18 03:19 Chloride 104 mmol/L (98-107) 07/29/18 03:19 Carbon Dioxide 23 mmol/L (21-32) 07/29/18 03:19 Anion Gap 8 MMOL/L (8-16) 07/29/18 03:19 BUN 7 mg/dL (7-18) 07/29/18 03:19 Creatinine 0.5 mg/dL (0.55-1.3) L 07/29/18 03:19 Est GFR (CKD-EPI)AfAm 147.38 07/29/18 03:19 Est GFR (CKD-EPI)NonAf 127.16 07/29/18 03:19 Random Glucose 88 mg/dL (74-106) 07/29/18 03:19 Calcium 8.6 mg/dL (8.5-10.1) 07/29/18 03:19 Total Bilirubin 0.5 mg/dL (0.2-1) 07/29/18 03:19 AST 19 U/L (15-37) 07/29/18 03:19 ALT 29 U/L (13-61) 07/29/18 03:19 Alkaline Phosphatase 102 U/L (45-117) 07/29/18 03:19 Total Protein 7.1 g/dl (6.4-8.2) 07/29/18 03:19 Albumin 3.1 g/dl (3.4-5.0) L 07/29/18 03:19 No clinically significant electrolyte abnormalities. No DOE. No transaminitis. 07/29/18 04:30 Pt reassessed, reported improvement of symptoms. 07/29/18 04:45 CXR my read: no obvious infiltrate. sharp costophrenic angles. no cardiomegaly. no large pneumothorax. -Pending official report 07/29/18 06:12 CTA Chest report: no PE. right lower lobe airspace disease suggestive of pneumonia. Medications ordered: Ceftriaxone 1 g once IV Pt informed of results. 07/29/18 06:52 Vital Signs Temperature 98.1 F 07/29/18 06:25 Pulse Rate 108 H 07/29/18 06:25 Respiratory Rate 20 07/29/18 06:25 Blood Pressure 113/81 07/29/18 06:25 O2 Sat by Pulse Oximetry (%) 100 07/29/18 06:36 Afebrile. Tachycardia improving Tachypnea improving. No hypotension. No hypoxia on room air. Disposition: discharged. Discharge medications: Z-pack 07/31/18 10:51 Follow up: Official CXR report: weak inspiration with bibasilar atelectasis or infiltrate. *DC/Admit/Observation/Transfer Diagnosis at time of Disposition: Pneumonia, Leukocytosis - Discharge Dispostion Disposition: HOME Condition at time of disposition: Stable Decision to Admit order: No - Prescriptions Prescriptions: Azithromycin [Zithromax 250mg Tablets -] 250 mg PO UTDICT #6 tab - Referrals Referrals: Pema Singh MD [Primary Care Provider] - - Patient Instructions Printed Discharge Instructions: DI for Pneumonia -- Adult Additional Instructions: You were seen today for cough. Your imaging showed a pneumonia. Your lab work showed an elevated white blood cell count, an indicator of infection. Have this rechecked by your primary care doctor within a week. I have sent a prescription to your pharmacy for an antibiotic, take as advised on label. Take Tylenol over the counter for pain/fever, take as advised on label. The IV Contrast you received for the Cat-Scan should not affect breast feeding. It has been shown that <0.1% enters the breast milk and the total dose to the infant is <0.01%. It is generally recommended to not discontinue breast feeding. If you remained concerned you can pump and dump for up to 24 hours and feed the baby formula. Follow up with your primary care doctor as soon as possible. Your care is not complete until you follow up. Return to the Emergency Department for increasing pain despite tylenol use, shortness of breath, fever despite tylenol use, fever>5 days, coughing up blood , swelling of the legs, chest pain, or any other new, worsening or concerning symptoms. - Post Discharge Activity Forms/Work/School Notes: Back to Work
[2018-07-29] MEDS ORDERED: ACETAMINOPHEN 325 MG TABLET (FP) PO ONE (02:29)
[2018-07-29 02:45] VITALS: BMI 24.2
[2018-07-29] MEDS ORDERED: ACETAMINOPHEN 325 MG TABLET (FP) ONE (02:48)
[2018-07-29] MEDS ORDERED: SODIUM CHLORIDE 1,000 ML IV STA (03:01)
--- NOTE | 2018-07-29 03:01 | PDOC ---
Attending Attestation - Resident Resident Name: JuanjoFabiana - ED Attending Attestation I have performed the following: I have examined & evaluated the patient, The case was reviewed & discussed with the resident, I agree w/resident's findings & plan - HPI HPI: 07/29/18 05:31 Pt comes with right lower lung pain that is pleuritic in nature - Physicial Exam PE: 07/29/18 05:31 Agree with resident exam. Pt has rales on the RLL. Lear breath sounds on the left side. - Medical Decision Making 07/29/18 07:01 CTA shows no pulm embolism Pt has a RLL pneumonia. she was given 1 dose of IV abx and she will go home with [facility]. She is breast feeling and she understands that the IV contrast will
[2018-07-29 03:04] LABS: EPI CELLS 0.6 /HPF (0-5/HPF); HCG,QUALITATIVE URINE Positive; PH,URINE 6.5 (5.0-8.0); URINE APPEARANCE CLEAR; URINE BACTERIA 1.4 /hpf (NEGATIVE); URINE BILIRUBIN NEGATIVE (NEGATIVE); URINE CASTS 0 /lpf (0-8); URINE COLOR YELLOW; URINE GLUCOSE (UA) NEGATIVE (NEGATIVE); URINE KETONE NEGATIVE (NEGATIVE); URINE LEUK ESTERASE NEGATIVE (NEGATIVE); URINE NITRITE NEGATIVE (NEGATIVE); URINE PROTEIN NEGATIVE (NEGATIVE); URINE RBC 8 /hpf (0-4); URINE WBC 0 /hpf (0-5)
[2018-07-29 03:36] LABS: BASO % 0.3 % (0-2.0); EOS % 0.3 % (0-4.5); HEMOGLOBIN 9.4 GM/dL (10.7-15.3); LYMPH % 7.9 % (8-40); MCH 30.1 pg (25.7-33.7); MCHC 33.5 g/dl (32.0-36.0); MEAN CELL VOLUME 89.7 fl (80-96); MEAN PLT VOLUME 9.5 fl (7.5-11.1); MONO % 7.2 % (3.8-10.2); NEUT % 84.3 % (42.8-82.8); PLATELET COUNT 213 K/MM3 (134-434); RBC 3.13 M/mm3 (3.60-5.2); WHITE BLOOD COUNT 14.5 K/mm3 (4.0-10.0)
[2018-07-29 04:10] LABS: ALBUMIN 3.1 g/dl (3.4-5.0); BILIRUBIN,TOTAL 0.5 mg/dL (0.2-1); CALCIUM 8.6 mg/dL (8.5-10.1); CREATININE 0.5 mg/dL (0.55-1.3); POTASSIUM 3.8 mmol/L (3.5-5.1); TOT PROT 7.1 g/dl (6.4-8.2)
[2018-07-29 04:17] LABS: INR 1.11 (0.83-1.09); PROTHROMBIN TIME (PATIENT) 13.1 SEC (9.7-13.0)
[2018-07-29 04:19] LABS: ACTIVATED PTT 32.3 SECONDS (25.2-36.5)
[2018-07-29] MEDS ORDERED: CEFTRIAXONE 1 GM in DEXTROSE 5%-WATER - 100 ML IVPB ONE (06:13)
[2018-07-29] MEDS ORDERED: AZITHROMYCIN IVPB 500 MG in DEXTROSE 5%-WATER - 250 ML IVPB ONE (06:20)
[2018-07-29] MEDS ORDERED: CEFTRIAXONE 1 GM/50 ML BAG ONE (06:21)
[2018-07-29 06:26] VITALS: BP 113/81; PULSE 108; TEMP 98.1
[2018-07-29] MEDS ORDERED: AZITHROMYCIN IVPB 500 MG/250 ML BAG IVPB ONE (06:26)
--- NOTE | 2018-07-29 11:40 | EKG ---
Test Reason : Blood Pressure : / mmHG Vent. Rate : 107 BPM Atrial Rate : 107 BPM P-R Int : 136 ms QRS Dur : 090 ms QT Int : 332 ms P-R-T Axes : 039 -17 023 degrees QTc Int : 443 ms SINUS TACHYCARDIA MINIMAL VOLTAGE CRITERIA FOR LVH, MAY BE NORMAL VARIANT BORDERLINE ECG NO PREVIOUS ECGS AVAILABLE Confirmed by KELLIE CABRALES MD ([id number]) on 07/29/2018 11:40:08 AM Referred By: Confirmed By:KELLIE CABRALES MD
== END 2018-07-29 06:59 | disposition home or self-care (01) ==
LOC: JER 02:14
PROC: 3E03329 Introduction of Other Anti-infective into Peripheral Vein, Percutaneous Approach (ICD-10-PCS; principal; 2018-07-29)
PROC: 3E0337Z Introduction of Electrolytic and Water Balance Substance into Peripheral Vein, Percutaneous Approach (ICD-10-PCS; 2018-07-29)
DX: J18.9 Pneumonia, unspecified organism (principal); D72.829 Elevated white blood cell count, unspecified
CPT/HCPCS: 36415; 71045-TC-FY; 71275-TC; 80053; 81003; 84703; 85025; 85610; 85730; 93005; 93010; 96361; 96365; 96367; 99283-25; J7030

== ENCOUNTER 2020-11-24 13:53 | Emergency (ER) | payer OTHER ==
[2020-11-24 14:30] VITALS: BP 131/82; PULSE 81; TEMP 98.1
[2020-11-24 15:35] LABS: URINE APPEARANCE CLEAR; URINE BILIRUBIN NEGATIVE (NEGATIVE); URINE COLOR YELLOW; URINE GLUCOSE (UA) NEGATIVE (NEGATIVE); URINE KETONE NEGATIVE (NEGATIVE); URINE LEUK ESTERASE NEGATIVE (NEGATIVE); URINE NITRITE NEGATIVE (NEGATIVE); URINE PROTEIN NEGATIVE (NEGATIVE); URINE UROBILINOGEN 0.2 mg/dL (0.2-1.0)
== END 2020-11-24 14:53 | disposition home or self-care (01) ==
LOC: JER 13:53
DX: O26.893 Other specified pregnancy related conditions, third trimester (principal); M54.5 Low back pain; Z3A.39 39 weeks gestation of pregnancy
CPT/HCPCS: 81003; 87077; 87086; 99281-25

== ENCOUNTER 2020-11-27 13:30 | Inpatient (IN) | payer OTHER ==
[2020-11-27] MEDS ORDERED: CITRIC ACID/SODIUM CITRATE 30 ML UNIT-DOSE CUP PO ONE (15:34)
[2020-11-27] MEDS ORDERED: ELECTROLYTE-148 SOLN 1,000 ML IV SCH (15:45)
[2020-11-27 15:49] VITALS: BMI 26.1
[2020-11-27] MEDS ORDERED: ACETAMINOPHEN 325 MG TABLET (FP) PO PRN (19:01)
[2020-11-27] MEDS ORDERED: ONDANSETRON 4 MG/2 ML VIAL IVPUSH PRN (19:01)
[2020-11-27] MEDS ORDERED: OXYTOCIN 20 UNITS in 0.9% NS 20 UNIT/1,000 ML INFUS.BAG IV ONE (19:04)
[2020-11-27] MEDS ORDERED: morphine SULFATE/PF 0.5 MG/ML (2cc Syringe - QUVA) ONE (19:05)
[2020-11-27] MEDS ORDERED: ePHEDrine SULFATE 50 MG/1 ML AMPULE ONE (19:06)
[2020-11-27] MEDS ORDERED: ceFAZolin SODIUM 1 GM VIAL ONE (19:20)
[2020-11-27] MEDS ORDERED: OXYTOCIN 10 UNIT/ML 10ML MDV ONE (19:47)
[2020-11-27] MEDS ORDERED: ONDANSETRON 4 MG/2 ML VIAL ONE (19:59)
[2020-11-27] MEDS ORDERED: diphenhydrAMINE HCL 25 MG CAPSULE (FP) PO PRN (20:41)
[2020-11-27] MEDS ORDERED: METHYLERGONOVINE MALEATE 0.2 MG/1 ML AMP IM PRN (20:41)
[2020-11-27] MEDS ORDERED: BENZOCAINE 28 GM HEMORRHOIDAL OINTMENT PR PRN (20:41)
[2020-11-27] MEDS ORDERED: oxyCODONE HCL 5 MG TABLET PO PRN ×2 (20:41)
[2020-11-27] MEDS ORDERED: WITCH HAZEL 50% (TUCKS) 40 PAD/JAR PAD TP PRN (20:41)
[2020-11-27] MEDS ORDERED: BENZOCAINE 20% 57 GM BOTTLE TP PRN (20:41)
[2020-11-27] MEDS ORDERED: IBUPROFEN 800 MG/8 ML IJ IVPB PRN (20:41)
[2020-11-27] MEDS ORDERED: DEXTROSE 5%-LACTATED RINGERS 1,000 ML IV SCH (20:45)
[2020-11-27] MEDS ORDERED: OXYTOCIN 20 UNITS in 0.9% NS 20 UNIT/1,000 ML INFUS.BAG IV SCH (20:45)
[2020-11-28] MEDS: CEFAZOLIN 1 GM/D5W 1 GM/50 ML BAG IVPB SCH ×2 (01:27→09:42)
[2020-11-28 08:24] LABS: BASO % 0.7 % (0-2.0); EOS % 0.5 % (0-4.5); HEMATOCRIT 26.3 % (32.4-45.2); HEMOGLOBIN 9.6 GM/dL (10.7-15.3); LYMPH % 16.4 % (8-40); MCH 33.8 pg (25.7-33.7); MCHC 36.5 g/dl (32.0-36.0); MEAN CELL VOLUME 92.6 fl (80-96); MEAN PLT VOLUME 9.7 fl (7.5-11.1); MONO % 9.1 % (3.8-10.2); NEUT % 73.3 % (42.8-82.8); PLATELET COUNT 234 10^3/uL (134-434); RBC 2.84 M/mm3 (3.60-5.2); RDW 13.9 % (11.6-15.6)
[2020-11-28] MEDS: ENOXAPARIN NA (PORCINE) 40 MG/0.4 ML DISP.SYRIN SQ SCH (09:43)
[2020-11-28] MEDS: IBUPROFEN 600 MG TABLET (FP) PO PRN (14:25)
[2020-11-28] MEDS: SIMETHICONE 80 MG TAB.CHEW (FP) PO PRN (14:25)
[2020-11-28] MEDS ORDERED: CLINDAMYCIN 900 MG PREMIX IVPB 900 MG/50 ML BAG IVPB ONE (15:29)
[2020-11-28] MEDS ORDERED: GENTAMICIN INJECTION 80 MG in DEXTROSE 5%-WATER - 250 ML IVPB SCH (15:45)
[2020-11-28 17:28] LABS: BASO % 0.8 % (0-2.0); EOS % 0.3 % (0-4.5); HEMATOCRIT 30.7 % (32.4-45.2); HEMOGLOBIN 10.9 GM/dL (10.7-15.3); LYMPH % 11.7 % (8-40); MCH 33.1 pg (25.7-33.7); MCHC 35.7 g/dl (32.0-36.0); MEAN CELL VOLUME 92.8 fl (80-96); MEAN PLT VOLUME 10.1 fl (7.5-11.1); MONO % 6.6 % (3.8-10.2); NEUT % 80.6 % (42.8-82.8); PLATELET COUNT 275 10^3/uL (134-434); RBC 3.31 M/mm3 (3.60-5.2); RDW 13.9 % (11.6-15.6); WHITE BLOOD COUNT 16.3 K/mm3 (4.0-10.0)
[2020-11-28 17:57] LABS: CALCIUM 8.4 mg/dL (8.5-10.1)
[2020-11-28 17:58] LABS: ALBUMIN 2.6 g/dl (3.4-5.0); BLOOD UREA NITROGEN 5.7 mg/dL (7-18)
[2020-11-28 18:01] LABS: CREATININE 0.5 mg/dL (0.55-1.3)
[2020-11-28 18:02] LABS: BILIRUBIN,TOTAL 0.7 mg/dL (0.2-1); TOT PROT 6.6 g/dl (6.4-8.2)
[2020-11-28] MEDS: GENTAMICIN 80 MG PREMIXED IVPB 80 MG/100 ML BAG IVPB SCH (18:51)
[2020-11-28] MEDS ORDERED: BISACODYL 10 MG SUPP.RECT PR PRN (20:41)
[2020-11-29] MEDS: ACETAMINOPHEN 325 MG TABLET (FP) PO PRN ×3 (00:04→15:10)
[2020-11-29] MEDS: GENTAMICIN 80 MG PREMIXED IVPB 80 MG/100 ML BAG IVPB SCH ×3 (02:10→17:36)
[2020-11-29] MEDS: ENOXAPARIN NA (PORCINE) 40 MG/0.4 ML DISP.SYRIN SQ SCH (09:50)
[2020-11-29] MEDS: CLINDAMYCIN 900 MG PREMIX IVPB 900 MG/50 ML BAG IVPB SCH ×2 (14:50→18:14)
[2020-11-29] MEDS ORDERED: SENNOSIDES/DOCUSATE COMBO (SENNA PLUS) TABLET (UD) PO PRN (22:00)
[2020-11-30] MEDS: GENTAMICIN 80 MG PREMIXED IVPB 80 MG/100 ML BAG IVPB SCH ×3 (01:12→18:47)
[2020-11-30] MEDS: IBUPROFEN 600 MG TABLET (FP) PO PRN (01:23)
[2020-11-30] MEDS: SIMETHICONE 80 MG TAB.CHEW (FP) PO PRN (01:56)
[2020-11-30] MEDS: CLINDAMYCIN 900 MG PREMIX IVPB 900 MG/50 ML BAG IVPB SCH ×3 (02:18→18:03)
[2020-11-30 08:42] LABS: BASO % 0.3 % (0-2.0); EOS % 1.9 % (0-4.5); HEMATOCRIT 27.7 % (32.4-45.2); HEMOGLOBIN 9.8 GM/dL (10.7-15.3); LYMPH % 9.4 % (8-40); MCH 32.8 pg (25.7-33.7); MCHC 35.3 g/dl (32.0-36.0); MEAN CELL VOLUME 92.9 fl (80-96); MEAN PLT VOLUME 8.8 fl (7.5-11.1); MONO % 9.8 % (3.8-10.2); NEUT % 78.6 % (42.8-82.8); PLATELET COUNT 255 10^3/uL (134-434); RBC 2.98 M/mm3 (3.60-5.2); RDW 13.9 % (11.6-15.6); WHITE BLOOD COUNT 13.8 K/mm3 (4.0-10.0)
[2020-11-30] MEDS: ENOXAPARIN NA (PORCINE) 40 MG/0.4 ML DISP.SYRIN SQ SCH (10:00)
[2020-12-01] MEDS: GENTAMICIN 80 MG PREMIXED IVPB 80 MG/100 ML BAG IVPB SCH ×2 (02:26→10:26)
[2020-12-01] MEDS: CLINDAMYCIN 900 MG PREMIX IVPB 900 MG/50 ML BAG IVPB SCH ×2 (03:33→09:38)
[2020-12-01] MEDS: ENOXAPARIN NA (PORCINE) 40 MG/0.4 ML DISP.SYRIN SQ SCH (09:37)
[2020-12-01 10:24] VITALS: BP 123/73; PULSE 88; TEMP 98.2
== END 2020-12-01 17:20 | disposition home or self-care (01) | DRG 540 ==
LOC: JLDR 13:40 → J3W 11-28 01:02
PROVIDERS: ADMIT Obstetrics & Gynecology; ATTEND Obstetrics & Gynecology
PROC: 10D00Z1 Extraction of Products of Conception, Low, Open Approach (ICD-10-PCS; principal; 2020-11-27)
DX: O48.0 Post-term pregnancy (principal); O34.211 Maternal care for low transverse scar from previous cesarean delivery; O75.4 Other complications of obstetric surgery and procedures; R50.82 Postprocedural fever; Z3A.40 40 weeks gestation of pregnancy; Z37.0 Single live birth
CPT/HCPCS: 36415; 59025; 71046-TC-FY; 80048; 80053; 85025; 85610; 85730; 86780; 86850; 86900; 86901; 87040; 87086; C9803; U0003; U0005

== ENCOUNTER 2023-10-24 12:41 | Emergency (ER) | payer OTHER ==
[2023-10-24 13:52] VITALS: RESP 18; BMI 22.6
[2023-10-24 15:16] LABS: EOS % 0.8 % (0-4.5); HEMATOCRIT 27.2 % (32.4-45.2); HEMOGLOBIN 9.7 GM/dL (10.7-15.3); LYMPH % 32.2 % (8-40); MCH 29.3 pg (25.7-33.7); MCHC 35.7 g/dl (32.0-36.0); MEAN CELL VOLUME 82.1 fl (80-96); MEAN PLT VOLUME 9.2 fl (7.5-11.1); MONO % 8.8 % (3.8-10.2); NEUT % 57.2 % (42.8-82.8); PLATELET COUNT 126 10^3/uL (134-434); RBC 3.32 M/mm3 (3.60-5.2); RDW 14.8 % (11.6-15.6); WHITE BLOOD COUNT 4.5 K/mm3 (4.0-10.0)
[2023-10-24 15:17] LABS: INR 1.13 (0.83-1.09); PROTHROMBIN TIME (PATIENT) 12.9 SEC (9.7-13.0)
[2023-10-24 15:30] LABS: CALCIUM 8.5 mg/dL (8.5-10.1)
[2023-10-24 15:31] LABS: BLOOD UREA NITROGEN 6.1 mg/dL (7-18); MAGNESIUM 2.2 mg/dL (1.8-2.4)
[2023-10-24 15:34] LABS: CREATININE 0.6 mg/dL (0.55-1.3)
[2023-10-24 15:35] LABS: BILIRUBIN,TOTAL 0.7 mg/dL (0.2-1)
[2023-10-24 15:36] LABS: TOT PROT 7.7 g/dl (6.4-8.2)
[2023-10-24 17:49] VITALS: BP 108/57; PULSE 70; TEMP 98.4
[2023-10-24 18:43] LABS: HIV INTERPRETATION NEGATIVE (NEGATIVE)
== END 2023-10-24 18:22 | disposition home or self-care (01) ==
LOC: JER 12:41
DX: R07.1 Chest pain on breathing (principal); R79.89 Other specified abnormal findings of blood chemistry; R00.2 Palpitations
CPT/HCPCS: 36415; 71046-TC-FY; 71275-TC; 80053; 82550; 83735; 84484; 84703; 85025; 85379; 85610; 85730; 86803; 87389; 99285-25; Q9967